=== PATIENT | male | born 1965 | race African-American/Black ===

== ENCOUNTER 2023-12-04 07:30 | Observation (INO) ==
[2023-12-04] MEDS ORDERED: ceFAZolin 2 GM in NS PREMIX 2 GM/100 ML BAG IVPB ONE (08:19)
[2023-12-04 08:36] LABS: Rapid COVID-19 Molecular Undetected (Undetected)
[2023-12-04] MEDS ORDERED: fentaNYL 100 mcg/2 ml 50 MCG/ML VIAL IV PRN (09:04)
[2023-12-04] MEDS ORDERED: Naloxone 0.4 mg VIAL 0.4 mg/ml 1 ml VIAL IV PRN (09:04)
[2023-12-04] MEDS ORDERED: Ondansetron 4 mg VIAL 2 MG/ML 2 ml VIAL IV PRN ×2 (09:04→14:33)
[2023-12-04] MEDS ORDERED: Acetaminophen IV 1 GM/100ML 1,000 MG/100 ML BAG IV PRN (09:04)
[2023-12-04 09:33] LABS: ABS Basophils 0.1 10^3/uL (0.0-0.1); ABS Eosinophils 0.3 10^3/uL (0.0-0.5); ABS Lymphocytes 2.2 10^3/uL (1.0-4.8); ABS Neutrophils 4.4 10^3/uL (1.5-7.6); ABS Nucleated RBC 0.01 10^3/ul; Eosinophil % 3.8 %; Hematocrit 38.5 % (38-53); Hemoglobin 12.8 g/dL (13.2-16.3); Lymphocyte % 27.8 %; Mean Corpuscular Hemoglobin 28.7 pg (27-33); Mean Corpuscular Hgb Conc 33.2 g/dL (31-36); Mean Corpuscular Volume 86.3 fL (80-97); Mean Platelet Volume 7.9 fL (7.5-11.2); Nucleated Red Blood Cells % 0.1 %/100WBC (0.0-0.8); Platelet Count 284 10^3/uL (150-450); Red Blood Count 4.46 10^6/uL (4.06-5.63); Red Cell Distribution Width 14.9 % (12-17)
[2023-12-04 09:41] LABS: INR 1.21 (0.83-1.13)
[2023-12-04 10:20] LABS: Albumin 4.2 g/dL (3.2-5.2); Albumin/Globulin Ratio 1.4 (1-3); Calcium 9.8 mg/dL (8.6-10.3); Creatinine, Serum 1.54 mg/dL (0.67-1.17); Globulin 2.9 g/dL (2-4); Total Bilirubin 0.6 mg/dL (0.2-1.0); Total Protein 7.1 g/dL (6.4-8.9); eGFR CKD-EPI 51.3 (>60)
[2023-12-04] MEDS ORDERED: fentaNYL 100 mcg/2 ml 50 MCG/ML VIAL ONE (11:21)
[2023-12-04] MEDS ORDERED: Midazolam 2 mg/2 ml VIAL 1 mg/ml 2 ml VIAL (2 mg) ONE (11:25)
[2023-12-04] MEDS ORDERED: Ondansetron 4 mg VIAL 2 MG/ML 2 ml VIAL ONE (11:26)
[2023-12-04] MEDS ORDERED: Propofol 10 MG/ML 20 ML BTL ONE (11:26)
[2023-12-04] MEDS ORDERED: Lidocaine 2% PF 5 ML VIAL ONE (11:26)
[2023-12-04] MEDS ORDERED: Vancomycin 1,000 MG VIAL ONE (12:05)
[2023-12-04] MEDS ORDERED: Bupivacaine 0.5% SDV PF 30ML VIAL ONE (12:05)
[2023-12-04] MEDS ORDERED: HYDROmorphone 0.5 MG/0.5 ML SYRINGE ONE ×3 (12:12→13:55)
[2023-12-04] MEDS ORDERED: Rocuronium 50 mg VIAL 10 mg/ml 5 ml VIAL (50 mg) ONE ×2 (12:19→14:18)
[2023-12-04] MEDS ORDERED: Tranexamic Acid 1,000 MG/10 ML SDV ONE (12:29)
[2023-12-04] MEDS ORDERED: Ondansetron ODT 4 mg TAB 4 MG TAB PO PRN (14:33)
[2023-12-04] MEDS ORDERED: Magnesium Hydroxide LIQ 30 ML UDC PO PRN (14:33)
[2023-12-04] MEDS ORDERED: Lactulose 30 ml UDC PO PRN (14:33)
[2023-12-04] MEDS ORDERED: HYDROmorphone 1 MG/1 ML SYRINGE ONE (15:53)
[2023-12-04] MEDS: HYDROmorphone 1 MG/1 ML SYRINGE IV PRN (15:55)
[2023-12-04] MEDS ORDERED: Polyethylene Glycol 3350 17 GM PACKET PO PRN (16:00)
[2023-12-04] MEDS: Lactated Ringers 1000 ml BAG 1,000 ML IV SCH ×2 (18:46)
[2023-12-04] MEDS: Buffered Lidocaine 1% SYRIN 1 ml INTRADERM ONE (18:46)
[2023-12-04] MEDS: Morphine 2 MG/ML SYRINGE IV PRN (19:04)
[2023-12-04] MEDS: ceFAZolin 1 GM ADVAN 1 GM in NS 0.9% 50 ML 50 ML IVPB SCH (19:42)
[2023-12-04] MEDS: Magnesium Hydroxide LIQ 30 ML UDC PO SCH (22:07)
[2023-12-05 06:01] LABS: Hematocrit 30.5 % (38-53); Hemoglobin 10.2 g/dL (13.2-16.3); Mean Platelet Volume 8.1 fL (7.5-11.2); Platelet Count 227 10^3/uL (150-450)
[2023-12-05 06:25] LABS: Calcium 8.4 mg/dL (8.6-10.3); Creatinine, Serum 1.83 mg/dL (0.67-1.17); Potassium 2.9 mmol/L (3.5-5.0); eGFR CKD-EPI 41.7 (>60)
[2023-12-05 07:55] LABS: Magnesium 1.4 mg/dL (1.9-2.7)
[2023-12-05] MEDS: Vitamin THERAPEUTIC TAB PO SCH (08:25)
[2023-12-05] MEDS: Potassium Chlor 20 meq TAB.ER PO SCH (08:27)
[2023-12-05] MEDS: Magnesium Sulf 4 GM/100 ML IV 4,000 MG/100 ML BAG IVPB ONE (09:41)
[2023-12-06 05:59] LABS: Hematocrit 26.3 % (38-53); Hemoglobin 8.9 g/dL (13.2-16.3); Mean Platelet Volume 8.2 fL (7.5-11.2); Platelet Count 193 10^3/uL (150-450)
[2023-12-06 06:12] VITALS: BP 107/60
== END 2023-12-06 10:00 ==
LOC: AA 08:03 → INTOOBSV 08:03 → SSU 14:33
PROVIDERS: ADMIT Orthopaedic Surgery; ATTEND Orthopaedic Surgery

== ENCOUNTER 2024-06-15 07:24 | Inpatient (IN) ==
[~2024-06-15 07:24] MED LIST: Metoclopramide 5 MG/ML VIAL (10 mg) IV PRN; NS 0.45% 1000 ml BAG 1,000 ML IV SCH; Naloxone 0.4 mg VIAL 0.4 mg/ml 1 ml VIAL IV PRN; Ondansetron 4 mg VIAL 2 MG/ML 2 ml VIAL IV PRN; fentaNYL 100 mcg/2 ml 50 MCG/ML VIAL IV PRN
[2024-06-15 07:58] LABS: Rapid COVID-19 Molecular Undetected (Undetected)
[2024-06-15] MEDS ORDERED: Scopolamine 1 mg/72hr PATCH ONE (09:17)
[2024-06-15] MEDS ORDERED: ceFAZolin 2 GM PREMIX 2 GM/50 ML BAG ONE (09:18)
[2024-06-15] MEDS ORDERED: Vancomycin 1,000 MG VIAL ONE (10:12)
[2024-06-15] MEDS ORDERED: Rocuronium 50 mg VIAL 10 mg/ml 5 ml VIAL (50 mg) ONE (10:20)
[2024-06-15] MEDS ORDERED: fentaNYL 250 mcg/5 ml 50 MCG/ML 5 ml VIAL (250 MCG) ONE (10:20)
[2024-06-15] MEDS ORDERED: Midazolam 2 mg/2 ml VIAL 1 mg/ml 2 ml VIAL (2 mg) ONE (10:20)
[2024-06-15] MEDS ORDERED: Propofol 10 MG/ML 20 ML BTL ONE (10:23)
[2024-06-15] MEDS ORDERED: Lidocaine 2% PF 5 ML VIAL ONE ×2 (10:23→16:35)
[2024-06-15] MEDS ORDERED: HYDROmorphone 0.5 MG/0.5 ML SYRINGE ONE (12:38)
[2024-06-15] MEDS ORDERED: Ondansetron 4 mg VIAL 2 MG/ML 2 ml VIAL ONE (12:38)
[2024-06-15] MEDS ORDERED: Dexamethasone IV 4 MG/ML VIAL 1 ml VIAL ONE (12:38)
[2024-06-15] MEDS ORDERED: Phenylephrine 40 mcg/mL 10mL (400mcg) SYRINGE ONE ×2 (13:26→14:35)
[2024-06-15] MEDS: Acetaminophen IV 1 GM/100ML 1,000 MG/100 ML BAG IV ONE (15:13)
[2024-06-15] MEDS: Lactated Ringers 1000 ml BAG 1,000 ML IV SCH ×2 (15:13→17:13)
[2024-06-15] MEDS: Scopolamine 1 mg/72hr PATCH TRANSDERM ONE (15:13)
[2024-06-15] MEDS: Buffered Lidocaine 1% SYRIN 1 ml INTRADERM ONE (15:13)
[2024-06-15] MEDS ORDERED: Ondansetron ODT 4 mg TAB 4 MG TAB PO PRN (15:37)
[2024-06-15] MEDS ORDERED: Ondansetron 4 mg VIAL 2 MG/ML 2 ml VIAL IV PRN (15:37)
[2024-06-15] MEDS ORDERED: Magnesium Hydroxide LIQ 30 ML UDC PO PRN (15:37)
[2024-06-15] MEDS ORDERED: Calcium Carb (TUMS) 500 mg CHEW TAB PO PRN (15:37)
[2024-06-15] MEDS ORDERED: Morphine 2 MG/ML SYRINGE IV PRN (15:44)
[2024-06-15] MEDS: ceFAZolin 2 GM PREMIX 2 GM/50 ML BAG IV SCH (21:19)
[2024-06-15] MEDS: Magnesium Hydroxide LIQ 30 ML UDC PO SCH (21:57)
[2024-06-16 06:16] LABS: Hematocrit 24.3 % (38-53); Mean Platelet Volume 7.8 fL (7.5-11.2); Platelet Count 241 10^3/uL (150-450)
[2024-06-16 06:35] LABS: Calcium 7.7 mg/dL (8.6-10.3); Creatinine, Serum 2.6 mg/dL (0.67-1.17); Potassium 3.7 mmol/L (3.5-5.0); eGFR CKD-EPI 27.2 (>60)
[2024-06-16] MEDS: Cholecalciferol (VIT D3) 1,000 unit TAB PO SCH (07:34)
[2024-06-16] MEDS: Vitamin THERAPEUTIC TAB PO SCH (07:35)
[2024-06-17 06:02] LABS: Hematocrit 18.7 % (38-53); Hemoglobin 6.4 g/dL (13.2-16.3); Mean Corpuscular Hemoglobin 28.6 pg (27-33); Mean Corpuscular Volume 84.3 fL (80-97); Mean Platelet Volume 7.9 fL (7.5-11.2); Platelet Count 204 10^3/uL (150-450); Red Blood Count 2.22 10^6/uL (4.06-5.63); Red Cell Distribution Width 16.8 % (12-17); White Blood Count 12.6 10^3/uL (3.6-10.2)
[2024-06-17 06:26] LABS: Calcium 7.5 mg/dL (8.6-10.3); Creatinine, Serum 2.4 mg/dL (0.67-1.17); Potassium 3.3 mmol/L (3.5-5.0); eGFR CKD-EPI 29.9 (>60)
[2024-06-17 07:27] LABS: ABS Eosinophils 0.1 10^3/uL (0.0-0.5); ABS Lymphocytes 2.3 10^3/uL (1.0-4.8); ABS Monocytes 2.6 10^3/uL (0.0-1.1); ABS Neutrophils 7.6 10^3/uL (1.5-7.6); ABS Nucleated RBC 0.05 10^3/ul; Eosinophil % 0.5 %; Lymphocyte % 18.1 %; Nucleated Red Blood Cells % 0.4 %/100WBC (0.0-0.8)
[2024-06-17 11:57] LABS: Magnesium 1.9 mg/dL (1.9-2.7)
[2024-06-17] MEDS: Potassium Chlor 20 meq TAB.ER PO SCH (12:13)
[2024-06-17 18:01] LABS: Hematocrit 23.6 % (38-53); Hemoglobin 7.9 g/dL (13.2-16.3)
[2024-06-17] MEDS: Enoxaparin 40 MG/0.4 ML SYR SUBCUT SCH (21:17)
[2024-06-18 05:12] LABS: Hematocrit 23.8 % (38-53); Hemoglobin 8.1 g/dL (13.2-16.3); Mean Corpuscular Hemoglobin 28.8 pg (27-33); Mean Corpuscular Hgb Conc 33.8 g/dL (31-36); Mean Corpuscular Volume 85.1 fL (80-97); Mean Platelet Volume 7.7 fL (7.5-11.2); Platelet Count 209 10^3/uL (150-450); Red Cell Distribution Width 16.6 % (12-17); White Blood Count 11.5 10^3/uL (3.6-10.2)
[2024-06-18 05:20] LABS: ABS Eosinophils 0.3 10^3/uL (0.0-0.5); ABS Lymphocytes 2.7 10^3/uL (1.0-4.8); ABS Neutrophils 6.6 10^3/uL (1.5-7.6); Eosinophil % 2.2 %; Lymphocyte % 23.2 %; Nucleated Red Blood Cells % 0.9 %/100WBC (0.0-0.8)
[2024-06-18 05:29] LABS: Calcium 7.9 mg/dL (8.6-10.3); Creatinine, Serum 1.32 mg/dL (0.67-1.17); Potassium 3.6 mmol/L (3.5-5.0); eGFR CKD-EPI 61.4 (>60)
[2024-06-18] MEDS: Lactulose 30 ml UDC PO PRN (05:49)
[2024-06-18 10:40] VITALS: BP 129/61
== END 2024-06-18 13:20 | DRG 301 ==
LOC: OR 07:24 → SSU 07:24
PROVIDERS: ADMIT Nurse Practitioner Family; ATTEND Orthopaedic Surgery